=== PATIENT | female | born 1965 | race Caucasian/White ===

== ENCOUNTER → 2020-07-25 | Outpatient (CLI) | payer BC, OTHER | LOC: RAD 13:55 | DX: R60.0 Localized edema (principal) ==

== ENCOUNTER → 2022-01-07 | Day surgery (SDC) | payer BC, OTHER | END | disposition home or self-care (01) | LOC: MSO 08:07 | DX: H26.9 Unspecified cataract (principal) | CPT/HCPCS: 00142; J0171; J2250; V2632 ==

== ENCOUNTER → 2024-05-19 | Outpatient (CLI) | payer OTHER | LOC: RAD 05-16 09:00 | DX: S62.201A Unspecified fracture of first metacarpal bone, right hand, initial encounter for closed fracture (principal); X58.XXXA Exposure to other specified factors, initial encounter ==